=== PATIENT | male | born 1995 | race Caucasian/White ===

== ENCOUNTER 2021-08-16 11:20 | Emergency (ER) | payer OTHER ==
[~2021-08-16] VITALS: Ht 172.7 cm; Wt 78.0 kg
[2021-08-16 11:21] VITALS: BP 147/82
[2021-08-16 13:51] LABS: RSV AMPLIFICATION NEGATIVE (NEGATIVE)
== END 2021-08-16 14:15 | disposition home or self-care (01) ==
LOC: M ED 11:20
DX: J09.X9 Influenza due to identified novel influenza A virus with other manifestations (principal); R50.9 Fever, unspecified; J02.9 Acute pharyngitis, unspecified